=== PATIENT | female | born 1995 | race Caucasian/White ===

== ENCOUNTER 2020-01-16 13:56 | Inpatient (IN) | payer MEDICAID ==
[~2020-01-16] VITALS: Ht 152.4 cm; Wt 61.2 kg
[2020-01-16] MEDS ORDERED: SODIUM CHLORIDE 0.9% 1,000 ML IV ONE (14:23)
[2020-01-16] MEDS ORDERED: ONDANSETRON HCL 4MG/2ML INJ IV STA (14:23)
[2020-01-16 14:44] LABS: BASOPHILS % 0.2 % (0.0-2.0); HEMATOCRIT. 35.3 % (36.0-48.0); HEMOGLOBIN. 12.3 g/dL (12.0-16.0); LYMPHOCYTES % 14.1 % (20.0-50.0); MEAN CORPUSCULAR HEMOGLOBIN 29.2 pg (28.0-32.0); MEAN PLATELET VOLUME 7.2 fl (7.4-10.4); MONOCYTES % 4.7 % (2.0-8.0); PLATELET 279 x1000/uL (130-400); RED CELL DISTRIBUTION WIDTH 13.6 % (11.6-14.6)
[2020-01-16] MEDS ORDERED: LEVETIRACETAM 1000MG/100ML 100 ML IV ONE (14:45)
[2020-01-16 14:50] LABS: CHLORIDE 107 mEq/L (98-107)
[2020-01-16 14:59] LABS: HCG SCREEN POSITIVE
[2020-01-16 17:36] LABS: CLARITY URINE CLEAR (CLEAR); COLOR URINE YELLOW (YELLOW); KETONES URINE 1+ (NEGATIVE); LEUKOCYTE ESTERASE URINE NEGATIVE (NEGATIVE); NITRITE URINE POSITIVE (NEGATIVE); OCCULT BLOOD URINE NEGATIVE (NEGATIVE); PROTEIN URINE NEGATIVE (NEGATIVE); SPECIFIC GRAVITY URINE 1.012 (1.005-1.030); UROBILINOGEN URINE 0.2 E.U./dL (0.2-1.0)
[2020-01-16] MEDS ORDERED: CEFTRIAXONE 1 G PREMIX 50 ML IV NR (18:00)
[2020-01-16] MEDS ORDERED: SODIUM CHLORIDE 0.9% 1000ML BAG (SEPSIS BOLUS) IV ONE (18:30)
[2020-01-16] MEDS ORDERED: ACETAMINOPHEN 325MG TABLET PO PRN (19:00)
[2020-01-16] MEDS ORDERED: LORAZEPAM 2MG/ML CPJ IV PRN (19:00)
[2020-01-16] MEDS ORDERED: ONDANSETRON HCL 4MG/2ML INJ IV PRN (19:00)
[2020-01-16 23:00] VITALS: BP 115/52
[2020-01-16] MEDS ORDERED: SODIUM CHLORIDE 0.9% 1,000 ML IV SCH (23:00)
[2020-01-17] VITALS: BP 116/62
[2020-01-17] MEDS: LACTATED RINGERS 1,000 ML IV SCH ×2 (02:10→16:41)
[2020-01-17 04:00] VITALS: BP 116/66
[2020-01-17 04:56] LABS: *AMPHETAMINES SCREEN URINE NEGATIVE (NEGATIVE); *BARBITURATES SCREEN URINE NEGATIVE (NEGATIVE); *BENZODIAZEPINES SCREEN URINE NEGATIVE (NEGATIVE); *COCAINE SCREEN URINE NEGATIVE (NEGATIVE)
[2020-01-17 04:57] LABS: CANNABINOID URINE SCREEN NEGATIVE (NEGATIVE); METHADONE URINE SCREEN NEGATIVE (NEGATIVE); OPIATES URINE SCREEN NEGATIVE (NEGATIVE); PHENCYCLIDINE URINE SCREEN NEGATIVE (NEGATIVE)
[2020-01-17] MEDS ORDERED: MIDAZOLAM HCL 2 MG/2 ML VIAL ONE (05:21)
[2020-01-17] MEDS ORDERED: FENTANYL CITRATE/PF 50MCG/ML 2ML VIAL ONE (05:21)
[2020-01-17] MEDS ORDERED: PROPOFOL 200MG/20ML VIAL IV ONE (05:21)
[2020-01-17] MEDS ORDERED: ROCURONIUM BROMIDE 10MG/ML VIAL 5ML IV ONE ×2 (05:21→07:05)
[2020-01-17] MEDS ORDERED: LIDOCAINE HCL/PF 1% 10 MG/ML 5ML VIAL ONE (05:21)
[2020-01-17 06:01] LABS: CHLORIDE 109 mEq/L (98-107)
[2020-01-17] MEDS ORDERED: CEFAZOLIN SODIUM 1000MG/VIAL ONE (06:10)
[2020-01-17 06:16] LABS: BASOPHILS % 0.1 % (0.0-2.0); EOSINOPHILS % 0.1 % (0.0-5.0); HEMATOCRIT. 24.4 % (36.0-48.0); HEMOGLOBIN. 8.5 g/dL (12.0-16.0); MEAN CORPUSCULAR HEMOGLOBIN 29.6 pg (28.0-32.0); MEAN CORPUSCULAR VOLUME 84.5 fL (81.0-99.0); MEAN PLATELET VOLUME 7.5 fl (7.4-10.4); MONOCYTES % 7.4 % (2.0-8.0); NEUTROPHILS % 69.4 % (40.0-76.0); PLATELET 205 x1000/uL (130-400); RED BLOOD CELL COUNT 2.88 mill/uL (4.2-5.4); RED CELL DISTRIBUTION WIDTH 13.8 % (11.6-14.6)
[2020-01-17] MEDS ORDERED: DEXAMETHASONE 4MG/ML 1ML VIAL ONE (06:27)
[2020-01-17] MEDS ORDERED: PHENYLEPHRINE HCL 10 MG/ML 1ML (IV VIAL) IV ONE (06:28)
[2020-01-17 06:31] LABS: B-HCG QUANTITATIVE 6787 mIU/mL (<3)
[2020-01-17] MEDS ORDERED: HYDROMORPHONE HCL/PF 2MG/ML (OR) ONE (06:51)
[2020-01-17] MEDS ORDERED: ONDANSETRON HCL 4MG/2ML INJ ONE (07:00)
[2020-01-17] MEDS ORDERED: SKIN ADHESIVE 0.7 GM EA TOP ONE (07:08)
[2020-01-17] MEDS ORDERED: NEOSTIGMINE METHYLSULFATE 1MG/ML 10 ML VIAL ONE (07:08)
[2020-01-17] MEDS ORDERED: GLYCOPYRROLATE 0.2 MG/ML 2ML VIAL ONE ×2 (07:08→07:17)
[2020-01-17] MEDS ORDERED: ONDANSETRON HCL 4MG/2ML INJ IV PRN ×2 (07:45→08:00)
[2020-01-17] MEDS ORDERED: ACETAMINOPHEN 650MG SUPP PR PRN (07:45)
[2020-01-17] MEDS ORDERED: HYDROMORPHONE HCL/PF 2MG/ML CPJ IV PRN (08:00)
[2020-01-17] MEDS ORDERED: FENTANYL CITRATE/PF 50MCG/ML 2ML VIAL IV PRN (08:00)
[2020-01-17] MEDS ORDERED: CEFTRIAXONE 1 G PREMIX 50 ML IV SCH (09:00)
[2020-01-17] MEDS: LEVETIRACETAM 500MG TABLET PO SCH ×2 (10:57→21:58)
[2020-01-17] MEDS ORDERED: ONDANSETRON HCL 4MG/2ML INJ IV NR (15:15)
[2020-01-17] MEDS ORDERED: MORPHINE SULFATE 4 MG/ML CPJ (NOT FOR IM USE) IV NR (15:15)
[2020-01-17 16:00] VITALS: BP 99/69
[2020-01-17] MEDS: MORPHINE SULFATE 2 MG/ML CPJ (NOT FOR IM USE) IV PRN (16:42)
[2020-01-17 20:00] VITALS: BP 97/52
[2020-01-18] VITALS: BP 102/50
[2020-01-18] MEDS: LACTATED RINGERS 1,000 ML IV SCH ×3 (02:52→23:47)
[2020-01-18 04:51] LABS: BASOPHILS % 0.2 % (0.0-2.0); EOSINOPHILS % 0.1 % (0.0-5.0); HEMATOCRIT. 22.3 % (36.0-48.0); HEMOGLOBIN. 7.7 g/dL (12.0-16.0); MEAN CORPUSCULAR HEMOGLOBIN 29.3 pg (28.0-32.0); MEAN CORPUSCULAR VOLUME 84.5 fL (81.0-99.0); MEAN PLATELET VOLUME 7.6 fl (7.4-10.4); MONOCYTES % 9.9 % (2.0-8.0); NEUTROPHILS % 65.8 % (40.0-76.0); PLATELET 193 x1000/uL (130-400); RED BLOOD CELL COUNT 2.64 mill/uL (4.2-5.4); RED CELL DISTRIBUTION WIDTH 13.7 % (11.6-14.6)
[2020-01-18 04:59] LABS: CHLORIDE 111 mEq/L (98-107)
[2020-01-18 05:00] VITALS: BP 104/57
[2020-01-18 05:22] LABS: B-HCG QUANTITATIVE 2406 mIU/mL (<3)
[2020-01-18 08:00] VITALS: BP 100/59
[2020-01-18] MEDS: MORPHINE SULFATE 2 MG/ML CPJ (NOT FOR IM USE) IV PRN (08:20)
[2020-01-18] MEDS: CEFTRIAXONE 1 G PREMIX 50 ML IV SCH (08:21)
[2020-01-18] MEDS ORDERED: HYDROCODONE/ACETAMINOPHEN 5/325MG TABLET PO PRN (10:15)
[2020-01-18] MEDS: DOCUSATE SODIUM 100MG CAPSULE PO SCH (11:16)
[2020-01-18] MEDS: LEVETIRACETAM 500MG TABLET PO SCH ×2 (11:25→21:17)
[2020-01-18 12:00] VITALS: BP 99/58
[2020-01-18] MEDS: FERROUS SULFATE 325MG TABLET PO SCH ×2 (13:00→17:39)
[2020-01-18 16:00] VITALS: BP 102/57
[2020-01-18 20:00] VITALS: BP 105/60
[2020-01-19] VITALS: BP 101/59
[2020-01-19 04:00] VITALS: BP 97/55
[2020-01-19 06:27] LABS: BASOPHILS % 0.2 % (0.0-2.0); EOSINOPHILS % 0.3 % (0.0-5.0); HEMATOCRIT. 23.4 % (36.0-48.0); HEMOGLOBIN. 8.2 g/dL (12.0-16.0); LYMPHOCYTES % 31.1 % (20.0-50.0); MEAN CORPUSCULAR HEMOGLOBIN 29.7 pg (28.0-32.0); MEAN CORPUSCULAR VOLUME 85.3 fL (81.0-99.0); MEAN PLATELET VOLUME 7.5 fl (7.4-10.4); MONOCYTES % 7.1 % (2.0-8.0); NEUTROPHILS % 61.3 % (40.0-76.0); PLATELET 218 x1000/uL (130-400); RED BLOOD CELL COUNT 2.75 mill/uL (4.2-5.4); RED CELL DISTRIBUTION WIDTH 14.1 % (11.6-14.6)
[2020-01-19 06:32] LABS: CHLORIDE 109 mEq/L (98-107)
[2020-01-19 08:00] VITALS: BP 108/61
[2020-01-19] MEDS: CEFTRIAXONE 1 G PREMIX 50 ML IV SCH (08:35)
[2020-01-19] MEDS: LEVETIRACETAM 500MG TABLET PO SCH (08:35)
[2020-01-19] MEDS: DOCUSATE SODIUM 100MG CAPSULE PO SCH (08:36)
[2020-01-19] MEDS: FERROUS SULFATE 325MG TABLET PO SCH ×2 (08:36→14:05)
[2020-01-19] MEDS: LACTATED RINGERS 1,000 ML IV SCH (09:50)
[2020-01-19] MEDS ORDERED: FERR325T23 PO (11:06)
[2020-01-19] MEDS ORDERED: DOCU-150 PO (11:06)
[2020-01-19] MEDS ORDERED: TOPUD PO (11:06)
[2020-01-19] MEDS ORDERED: NITR-87 MT (11:06)
[2020-01-19] MEDS ORDERED: KEPP500 PO (11:08)
[2020-01-19] MEDS ORDERED: POTASSIUM CHLORIDE 20MEQ/PACKET PO NR (11:15)
[2020-01-19 12:00] VITALS: BP 97/55
[2020-01-19] MEDS ORDERED: MAGNESIUM HYDROXIDE 400MG/5ML 30ML UDC PO SCH (14:15)
[2020-01-19] MEDS ORDERED: SENNOSIDES/DOCUSATE SOD 8.6/50MG TABLET PO PRN (14:15)
== END 2020-01-19 16:07 | disposition home or self-care (01) | DRG 710 ==
LOC: ER 13:56 → 7WST 18:59 → ENRESERV 20:47
PROVIDERS: ADMIT Obstetrics & Gynecology; ATTEND Obstetrics & Gynecology
PROC: 0UQ00ZZ Repair Right Ovary, Open Approach (ICD-10-PCS; principal; 2020-01-17)
PROC: 0UJ80ZZ Inspection of Fallopian Tube, Open Approach (ICD-10-PCS; 2020-01-17)
PROC: 0W9G0ZZ Drainage of Peritoneal Cavity, Open Approach (ICD-10-PCS; 2020-01-17)
DX: A41.9 Sepsis, unspecified organism (principal); K66.1 Hemoperitoneum; O00.90 Unspecified ectopic pregnancy without intrauterine pregnancy; D62 Acute posthemorrhagic anemia; R56.9 Unspecified convulsions; N39.0 Urinary tract infection, site not specified; N83.201 Unspecified ovarian cyst, right side
CPT/HCPCS: 36415; 70551; 76830; 76856; 80053; 80305; 80320; 81003; 83605; 83735; 83880; 84484; 84702; 84703; 85025; 86850; 86900; 88305; 93005; 99291; J0690; J0696; J1100; J1170; J1953; J2250; J2270; J2370; J2405; J2704; J2710; J3010; J3490; J7030; J7120; G0480